=== PATIENT | female | born 1930 | race Caucasian/White ===

== ENCOUNTER 2016-11-22 15:12 | Outpatient (CLI) | payer OTHER ==
[~2016-11-22] VITALS: Ht 144.8 cm; Wt 55.9 kg
[2016-11-22 15:17] VITALS: BP 141/64; PULSE 68; RESP 18; Ht 144.8 cm; Wt 55.9 kg
[2016-11-22] MEDS ORDERED: LOSA50TA6 PO (15:40)
[2016-11-22] MEDS ORDERED: LEVO50TA74 PO (15:40)
[2016-11-22] MEDS ORDERED: HYDR-906 PO (15:40)
[2016-11-22] MEDS ORDERED: SILD20TA PO (15:40)
[2016-11-22] MEDS ORDERED: SIMV20TA PO (15:40)
[2016-11-22] MEDS ORDERED: RIVA15TA PO (15:40)
[2016-11-22] MEDS ORDERED: AMIO200T2 PO (15:40)
[2016-11-22] MEDS ORDERED: METO-448 PO (15:40)
[2016-11-22] MEDS ORDERED: HYDR-3671 PO (15:40)
[2016-11-22] MEDS ORDERED: ACET325T33 PO (15:40)
--- NOTE | 2016-11-22 16:19 | PN ---
Date/Time of Note Date/Time of Note DATE: 11/22/16 TIME: 16:13 Outpatient Progress Note Chief Complaint Epigastric pain/left knee pain/hypothyroidism/hypertension/hyperlipidemia/A. fib /chest pain HPI Epigastric pain/patient has epigastric discomfort, 8 out of 10, no nausea vomiting, patient was taking Naprosyn previously, patient has not been taking, Left knee pain/patient has moderately severe left knee pain, 8 or 9 out of 10, has difficulty in walking, patient is taking Enfield, patient was previously taking Naprosyn, Hypothyroidism/no puffiness of eyes, constipation, on medication, Hypertension/no headache or dizziness, no nausea or vomiting, no local focal weakness, Hyperlipidemia/no xanthoma, on medication, A. fib/no palpitations syncope, no bruises or bleeding, patient had also pacemaker, ASHD/no chest pain, no PND orthopnea or ankle edema, patient was recently hospitalized, no more chest pain at present, Review of Systems Const: No Fever, no chills, no Wt. loss, no Fatigue, normal appetite, no diaphoresis. Eyes: No pain, no discharge, no redness, no visual change, no foreign body. ENT: No pain, no bleeding, no congestion, no sore throat, no dysphagia, no discharge or rhinitis. Lymph: No adenopathy, no tender nodes, no lymphedema. Resp: No SOB, no cough, no sputum, no wheezing, no chest pain at present,. CV: No chest pain, no palpitaions, no TEMPLE, no PND, no edema. GI: Normal appetite, epigastric pain, no nausea, no vomiting, no diarrhea, no blood, no constipation. : No frequency, no urgency, no dysuria, no hematuria, no flank pain, no discharge, no bleeding. Musc: No back pain, no neck pain, left knee pain shoulder pain, neck pain, no restricted ROM. Skin: No rash, no skin lesions, no erythema, no laceration, no bruising, no pruritus. Neuro: No SMITH, no dizziness, no syncope, no seizure, no focal-weakness. Endo: No polyuria, no polydypsia, no dry-skin, no temp-intolerance. Psych: No hallucinations, no depression, no anxiety, no suicidal ideation. Ext: No edema, no pain, no ulcer, no weakness. Physical Exam Vital Signs Date Time Temp Pulse Resp B/P Pulse Ox O2 Delivery O2 Flow Rate FiO2 11/22/16 15:17 98.6 68 18 141/64 97 Room Air General Appearance: A 86 year-old female who appears well-developed, well- nourished, in no acute distress. HEENT: Head normocephalic, atraumatic. Pupils equal, round, reactive to light and accommodate. Sclerae are no jaundice. Nasal turbinates pink without erythema or nasal discharge. Mucous membranes pink and moist without lesions. Oropharynx clear without any exudate or discharge. NECK: Supple. Trachea midline, No thyromegaly, No cervical lymphadenopathy, No mass, No carotid bruits, No JVD, Carotid pulses 2+ bilaterally. PULMONARY: Clear to auscultaion bilaterally, No retractions, Chest expansion symmetric bilaterally, no rales, no ronchi, no dulness on percussion. CARDIAC: Normal SI and S2, iRegular rate and rythm, no murmur, gallop, or rub. GASTROINTESTINAL: Abdomen is soft, non-tender, Non Rigid, No distention, Positive bowel sounds x4 quadrants, Liver normal. SKIN: Warm, dry, no rash, no bruise, no echmosis. EXTREMITIES: Bilateral lower extremities no edema, no phlabitus, pulse palpable , left knee pain, no contracture. MUSCULOSKELETAL: Spine Normal, Non-tender, Normal range of motion, No swelling, no deformity, no clubbing, or cyanosis, the patient has no edema to bilateral lower extremities, dorsalis pedis pulses palpable bilaterally. Shoulder pain, knee pain, especially left NEUROLOGIC: The patient is awake, alert, oriented, responding to yes/no questions appropriately, moving all extremities, cranial nerve intact, normal strenght, normal power, normal coordination, normal gait. Allergies Uncoded Allergies: shrimp flavor (Allergy, Mild, 11/22/16) PMH Degenerative joint disease/hypothyroidism/hypertension/hyperlipidemia/A. fib/ history of chest pain/history of A. fib/ Cataract surgery Social Hx No smoking no drinking, Family Hx Noncontributory Assessment/Plan Impression Epigastric pain/PUD Left knee pain/DJD Hypothyroidism Hypertension Hyperlipidemia A. fib History of chest pain no coronary artery disease per dovetailer Status post pacemaker Plan continue all medications supportive care, medication review chart review discussed with the patient and the family, Patient encouraged to follow with the cardiology and wholesale buyer, patient also advised to follow with the orthogonal if the pain does not get better, Patient primary physician to arrange either to injection to the left knee or refer to [facility], Patient running out of pain medication, will start continue Enfield 5/325 one 3 times daily as needed #50 Patient will be also given Zantac 300 mg p.o. daily, #30 The patient has any problem to contact us or primary physician, patient encouraged to follow with the primary care physician, Medications Home Meds Reported Medications Simvastatin* (Zocor*) 20 Mg Tablet, 20 MG PO QHS, #30 TAB 11/22/16 Sildenafil Citrate* (Sildenafil Citrate*) 20 Mg Tablet, 20 MG PO TID, TAB 11/22/16 Rivaroxaban* (Xarelto*) 15 Mg Tablet, 15 MG PO WITH BREAKFAST DINNE, TAB 11/22/16 Metoprolol Tartrate* (Lopressor*) 25 Mg Tab, 25 MG PO DAILY, #60 TAB 11/22/16 Losartan Potassium* (Losartan Potassium*) 50 Mg Tablet, 50 MG PO BID, TAB 11/22/16 Levothyroxine Sodium* (Levothyroxine Sodium*) 50 Mcg Tablet, 50 MCG PO BEFORE BREAKFAST, #30 TAB 11/22/16 Amiodarone Hcl* (Amiodarone Hcl*) 200 Mg Tablet, 200 MG PO DAILY, #30 TAB 11/22/16 Hydralazine Hcl* (Hydralazine Hcl*) 25 Mg Tab, 25 MG PO Q6, #120 TAB 11/22/16 Hydrocodone/Acetaminophen (Enfield 5-325 Tablet) 1 Each Tablet, 1-2 EACH PO Q6 for PAIN LEVEL 6-10, TAB 11/22/16 Acetaminophen* (Tylenol*) 325 Mg Tablet, 650 MG PO Q4H Y for MILD PAIN LEVEL 1-3 , TAB 11/22/16 KIRSTEN TINEO MD Nov 22, 2016 16:19
== END 2016-11-22 16:27 | disposition home or self-care (01) ==
LOC: DCC 15:12
PROVIDERS: ATTEND Internal Medicine
DX: K27.9 Peptic ulcer, site unspecified, unspecified as acute or chronic, without hemorrhage or perforation (principal); M17.12 Unilateral primary osteoarthritis, left knee; E03.9 Hypothyroidism, unspecified; I10 Essential (primary) hypertension; E78.5 Hyperlipidemia, unspecified; I48.91 Unspecified atrial fibrillation; R07.9 Chest pain, unspecified; Z95.0 Presence of cardiac pacemaker
CPT/HCPCS: G0463